=== PATIENT | male | born 1985 | race Hispanic/Latino ===

== ENCOUNTER 2023-06-06 01:01 | Emergency (ER) | payer OTHER ==
[~2023-06-06] VITALS: Ht 172.7 cm; Wt 117.9 kg
[2023-06-06] MEDS: IBUPROFEN 800 MG TAB PO ONE (02:13)
[2023-06-06] MEDS ORDERED: IBUP-1493 PO (02:22)
[2023-06-06 02:25] VITALS: BP 156/92; PULSE 88; RESP 16; O2SAT 97
== END 2023-06-06 02:26 | disposition home or self-care (01) ==
LOC: EDH 01:01
DX: S16.1XXA Strain of muscle, fascia and tendon at neck level, initial encounter (principal); S50.11XA Contusion of right forearm, initial encounter; S60.221A Contusion of right hand, initial encounter; R10.9 Unspecified abdominal pain; I10 Essential (primary) hypertension; Y04.2XXA Assault by strike against or bumped into by another person, initial encounter; Y93.89 Activity, other specified; Y92.89 Other specified places as the place of occurrence of the external cause; Y99.8 Other external cause status
CPT/HCPCS: 72040; 73090; 73130